=== PATIENT | male | born 1970 | race Caucasian/White ===

== ENCOUNTER 2020-02-06 17:33 | Emergency (ER) | payer OTHER ==
[~2020-02-06] VITALS: Ht 182.9 cm; Wt 81.6 kg
[2020-02-06] MEDS ORDERED: TYLENOR (18:11)
== END 2020-02-06 22:08 | disposition home or self-care (01) ==
LOC: ER 17:33
DX: R31.0 Gross hematuria (principal); M54.5 Low back pain

== ENCOUNTER 2021-12-07 14:13 | Emergency (ER) | payer OTHER ==
[~2021-12-07] VITALS: Ht 182.9 cm; Wt 76.2 kg
[~2021-12-07 14:13] MED LIST: TYLENOR
== END 2021-12-07 19:13 | disposition home or self-care (01) ==
LOC: ER 14:13
DX: M72.2 Plantar fascial fibromatosis (principal)